=== PATIENT | female | born 1985 | race Caucasian/White ===

== ENCOUNTER 2018-02-03 11:08 | Emergency (ER) | payer OTHER ==
[~2018-02-03] VITALS: Ht 162.6 cm; Wt 49.9 kg
[~2018-02-03 11:08] MED LIST: ACETAMINOPHEN-1 EAC1 PO; BACTRIM DS TAB1 EACH PO; BACTROBAN22 GM TP; CELEXA40 MG PO; FLAGYL500 MG PO; IBUPROFEN 600600 M1 PO; MINOCYCLINE HC100 M2 PO; NOHOMEMEDICATIONS; SERTRALINE HCL50 MG PO; ULTRAM 50MG TAB50 MG PO; VISTARIL 25 MG25 M1 PO; VITAMIN B-121000 MC1 PO; ZPAK PO
[2018-02-03] MEDS ORDERED: BACTRIM DS TAB1 EAC1 PO (12:38)
[2018-02-03 12:55] VITALS: BP 118/64
== END 2018-02-03 12:56 | disposition home or self-care (01) ==
LOC: M.ERS 11:08
DX: L02.412 Cutaneous abscess of left axilla (principal); F32.9 Major depressive disorder, single episode, unspecified; F17.210 Nicotine dependence, cigarettes, uncomplicated; Z88.0 Allergy status to penicillin; Z86.2 Personal history of diseases of the blood and blood-forming organs and certain disorders involving the immune mechanism

== ENCOUNTER 2019-05-21 15:46 | Emergency (ER) | payer OTHER ==
[~2019-05-21] VITALS: Ht 162.6 cm; Wt 49.9 kg
[~2019-05-21 15:46] MED LIST changes: +BACTRIM DS TAB1 EAC1 PO
[2019-05-21] MEDS ORDERED: ZPAK PO (16:06)
[2019-05-21] MEDS ORDERED: PREDNISONE 20 M20 M1 PO (16:07)
[2019-05-21 16:12] VITALS: BP 118/56
== END 2019-05-21 16:12 | disposition home or self-care (01) ==
LOC: M.ERS 15:46
DX: J01.90 Acute sinusitis, unspecified (principal); J20.9 Acute bronchitis, unspecified; F17.210 Nicotine dependence, cigarettes, uncomplicated; F32.9 Major depressive disorder, single episode, unspecified; Z88.0 Allergy status to penicillin; Z86.2 Personal history of diseases of the blood and blood-forming organs and certain disorders involving the immune mechanism

== ENCOUNTER 2019-05-26 13:00 | Emergency (ER) | payer OTHER ==
[~2019-05-26] VITALS: Ht 162.6 cm; Wt 49.9 kg
[~2019-05-26 13:00] MED LIST changes: +PREDNISONE 20 M20 M1 PO
[2019-05-26] MEDS ORDERED: NOHOMEMEDICATIONS (13:12)
[2019-05-26] MEDS ORDERED: GENTAK5 ML TOP (13:33)
[2019-05-26 13:57] VITALS: BP 128/59
== END 2019-05-26 13:58 | disposition home or self-care (01) ==
LOC: M.ERS 13:00
DX: H01.004 Unspecified blepharitis left upper eyelid (principal); F17.210 Nicotine dependence, cigarettes, uncomplicated; F32.9 Major depressive disorder, single episode, unspecified; Z88.0 Allergy status to penicillin; Z86.2 Personal history of diseases of the blood and blood-forming organs and certain disorders involving the immune mechanism

== ENCOUNTER 2019-09-20 14:56 | Emergency (ER) | payer OTHER ==
[~2019-09-20] VITALS: Ht 162.6 cm; Wt 49.9 kg
[~2019-09-20 14:56] MED LIST changes: +GENTAK5 ML TOP
[2019-09-20 15:49] LABS: URINE BILIRUBIN NEGATIVE (Negative); URINE BLOOD NEGATIVE (Negative); URINE CLARITY CLEAR; URINE COLOR YELLOW; URINE GLUCOSE-RANDOM NEGATIVE (Negative); URINE KETONES NEGATIVE (Negative); URINE LEUKOCYTES-REFLEX NEGATIVE (Negative); URINE NITRITE-REFLEX NEGATIVE (Negative); URINE PROTEIN NEGATIVE (Negative); URINE SPECIFIC GRAVITY <= 1.005 (1.005-1.030); URINE UROBILINOGEN 0.2 E.U./dl (0.2-1.0)
[2019-09-20 15:58] LABS: AMP/METHAMP Negative (Negative); BARBITURATES Negative (Negative); BENZODIAZEPINES Negative (Negative); COCAINE Negative (Negative); METHADONE Negative (Negative); OPIATES POSITIVE (Negative); PCP Negative (Negative); THC POSITIVE (Negative)
[2019-09-20 16:08] LABS: ABSOLUTE LYMPHOCYTES 1.1 thou/uL (0.8-5.3); ABSOLUTE MONOCYTES 0.3 thou/uL (0.0-1.2); ABSOLUTE NEUTROPHILS 5.8 thou/uL (1.6-8.1); BASOPHILS 0.4 %; EOSINOPHILS 0.2 %; HEMATOCRIT 38.9 % (37.0-47.0); LYMPHOCYTES 15.2 %; MCH 27.4 pg (26.0-34.0); MCHC 33.5 g/dL (28.0-37.0); MONOCYTES 4.7 %; MPV 8.6 fl. (7.2-11.1); NUCLEATED RBCS 0 /100WBC; PLATELET COUNT* 336 thou/uL (150-400); POLYS 79.5 %; RBC 4.74 mil/uL (4.20-5.00); RDW-CV 14.3 % (10.5-14.5); WBC 7.2 thou/uL (4.0-11.0)
[2019-09-20 16:15] LABS: CREATININE 0.7 mg/dL (0.6-1.3); POTASSIUM 3.7 mmol/L (3.5-5.1)
[2019-09-20 16:20] LABS: ALBUMIN 3.8 g/dL (3.4-5.0); TOTAL BILIRUBIN 0.7 mg/dL (<0.1-1.0); TOTAL PROTEIN 7.4 g/dL (6.4-8.2)
[2019-09-20 16:24] LABS: SALICYLATE 5.4 mg/dL (2.8-20.0)
[2019-09-20 16:26] LABS: ACETAMINOPHEN < 2 ug/mL (10-30)
[2019-09-20 16:27] LABS: ALCOHOL < 10 mg/dL (<10)
[2019-09-20] MEDS ORDERED: ATIVAN1 M1 PO (17:42)
[2019-09-20 17:59] VITALS: BP 103/62
== END 2019-09-20 18:02 | disposition home or self-care (01) ==
LOC: M.ERS 14:56
PROVIDERS: Family Medicine
DX: F11.23 Opioid dependence with withdrawal (principal); F32.9 Major depressive disorder, single episode, unspecified; F17.210 Nicotine dependence, cigarettes, uncomplicated; Z86.2 Personal history of diseases of the blood and blood-forming organs and certain disorders involving the immune mechanism; Z88.0 Allergy status to penicillin